=== PATIENT | male | born 1995 | race Hispanic/Latino ===

== ENCOUNTER 2023-07-09 15:41 | Outpatient (CLI) | payer BC | END 2023-07-09 15:42 | disposition home or self-care (01) | LOC: BICRAD 15:41 | PROVIDERS: ATTEND Family Medicine | DX: M54.2 Cervicalgia (principal); M21.921 Unspecified acquired deformity of right upper arm; G89.29 Other chronic pain | CPT/HCPCS: 72040; 72070 ==